=== PATIENT | male | born 1960 | race Caucasian/White ===

== ENCOUNTER → 2019-01-08 | Outpatient (REF) | payer OTHER ==
[~2019-01-08] MED LIST: ACYCLOVIR400 MG PO; AMBIEN CR12.5 MG PO; AMBIEN PO; AMOXICILLIN/CL875 MG OR; ANDRODERM2 MG/24 HR TD; AUGMENTIN875TAB PO; B-12500 MCG SC; CIPRO500 MG PO; HUMIRA IJ; HUMIRA SC; KEFLEX500 M1; MEDDOSEPAK PO; MELATONIN CR10 MG PO; MELOXICAM7.5 MG PO; NYSTATIN100000 M1 OR; PENTASA250 MG OR; PHENERGAN12.5 MG/TA PO; PHENERGAN25 MG/TAB PO; PREDNISONE20 MG PO; PROMETHAZINE25 MG PO; TESTOSTERON; TRAMADOL HCL50 MG PO; VENLAFAXINE37.5 M2 PO; VITAMIN B-121000 MCG PO; ZYRTEC10 MG PO
== END | disposition home or self-care (01) | DRG 387 ==
LOC: LAB 06:50
PROVIDERS: ATTEND Internal Medicine Gastroenterology
DX: K50.90 Crohn's disease, unspecified, without complications (principal); K76.0 Fatty (change of) liver, not elsewhere classified

== ENCOUNTER 2021-05-10 16:26 | Emergency (ER) | payer MEDICARE ==
[~2021-05-10] VITALS: Ht 175.3 cm; Wt 97.0 kg
[2021-05-10] MEDS ORDERED: KEFLEX500 MG PO (20:17)
[2021-05-10] MEDS ORDERED: FLONASE AL50 MCG/ACT (20:17)
[2021-05-10] MEDS ORDERED: MEDDOSEPAK PO (20:53)
[2021-05-10] MEDS ORDERED: BENADRYL ALLERG25 MG PO (20:53)
[2021-05-10 20:54] VITALS: BP 105/69
[2021-05-10] MEDS ORDERED: PEPCID20 MG PO (21:13)
== END 2021-05-10 20:55 | disposition home or self-care (01) ==
LOC: ED 16:26
DX: L50.0 Allergic urticaria (principal); T36.8X5A Adverse effect of other systemic antibiotics, initial encounter; E11.9 Type 2 diabetes mellitus without complications

== ENCOUNTER 2022-05-12 13:24 | Emergency (ER) | payer OTHER, MEDICARE ==
[~2022-05-12] VITALS: Ht 175.3 cm; Wt 200.0 kg
[~2022-05-12 13:24] MED LIST changes: +BENADRYL ALLERG25 MG PO; +FLONASE AL50 MCG/ACT; +KEFLEX500 MG PO; +PEPCID20 MG PO
[2022-05-12 13:39] VITALS: BP 140/90
[2022-05-12 13:46] VITALS: BP 159/103
[2022-05-12 14:00] VITALS: BP 137/86
[2022-05-12 14:15] VITALS: BP 144/92
[2022-05-12] MEDS ORDERED: LORTAB5 PO (16:43)
[2022-05-12] MEDS ORDERED: METHOCARBAMOL500 MG PO (16:43)
[2022-05-12 17:01] VITALS: BP 148/78
== END 2022-05-12 17:19 | disposition home or self-care (01) | DRG 552 ==
LOC: ED 13:24
DX: S16.1XXA Strain of muscle, fascia and tendon at neck level, initial encounter (principal); S46.912A Strain of unspecified muscle, fascia and tendon at shoulder and upper arm level, left arm, initial encounter; E11.9 Type 2 diabetes mellitus without complications; M15.9 Polyosteoarthritis, unspecified; V49.00XA Driver injured in collision with unspecified motor vehicles in nontraffic accident, initial encounter; Y92.481 Parking lot as the place of occurrence of the external cause